=== PATIENT | male | born 1955 | race Two or more races ===

== ENCOUNTER 2024-07-04 07:41 | Day surgery (SDC) | payer OTHER ==
[~2024-07-04 07:41] MED LIST: LIPITOR40 M1
[2024-07-04] MEDS ORDERED: POVIDONE-IODINE 118 ML BOTT TOP ONE (09:31)
[2024-07-04] MEDS ORDERED: DIBUCAINE 30 GM TUBE ONE (09:31)
[2024-07-04] MEDS ORDERED: HEMOSTATIC MATRIX 1 KIT KIT TOP ONE (09:31)
[2024-07-04] MEDS ORDERED: METRONIDAZOLE/SODIUM CHLORIDE 500 MG/100 ML PIGGYBACK IV ONE (09:34)
[2024-07-04] MEDS ORDERED: CEFTRIAXONE SODIUM 2,000 MG VIAL ONE (09:34)
[2024-07-04] MEDS ORDERED: MORPHINE SULFATE 4 MG/ML VIAL IV ONE (16:55)
== END 2024-07-04 17:30 | disposition home or self-care (01) ==
LOC: CIR.AMB 07:41
PROVIDERS: ATTEND Colon & Rectal Surgery
DX: K60.1 Chronic anal fissure (principal); K62.4 Stenosis of anus and rectum; K92.2 Gastrointestinal hemorrhage, unspecified